=== PATIENT | female | born 1980 | race Caucasian/White ===

== ENCOUNTER 2017-03-01 16:11 | Observation (INO) | payer MEDICAID ==
[~2017-03-01] VITALS: Ht 152.4 cm; Wt 40.4 kg
[~2017-03-01 16:11] MED LIST: ACHYD1T PO; ALPR0.254 PO; DCS100C PO; DICL50TA6 PO; Diclofenac PO; ESCI10TA55 PO; ESCT10T; IBP800T PO; LURA40TA3 PO; METR500T; NITR100C3 PO; ONDA4TAB11 PO; PREN1TAB49
--- NOTE | 2017-03-01 16:26 | ED Fever ---
History of Present Illness General Stated Complaint: FEVER Source: patient Exam Limitations: no limitations History of Present Illness Time seen by provider: 16:25 Initial Comments To ER with reports of a fever. It was at 102 earlier today. She finished Zithromax prednisone and an albuterol inhaler today which she was prescribed for cough, fevers and chills. She denies improvement and reports a persistent productive cough. Timing/Duration: constant Fever Quality: greater than 100.5 F Fever Therapy [employer]: prescription medications Associated Symptoms: cough Allergies and Home Medications Allergies Coded Allergies: No Known Drug Allergies (Verified , 05/22/09) Home Medications Alprazolam 0.25 Mg Tablet, 0.25 MG PO TID PRN for ANXIETY, (Reported) Diclofenac Sodium 50 Mg Tablet.dr, 50 MG PO BID, (Reported) Escitalopram Oxalate 10 Mg Tablet, 10 MG PO HS, (Reported) Lurasidone HCl 40 Mg Tablet, 40 MG PO HS, (Reported) Ondansetron 4 Mg Tab.rapdis, 4 MG PO Q8H PRN for NAUSEA, #30 Ref 0 Prescribed by: DI HUDDLESTON on 08/12/162040 Constitutional: see HPI, chills, fever EENTM: see HPI Respiratory: see HPI, cough, short of breath Cardiovascular: no symptoms reported Genitourinary: no symptoms reported Musculoskeletal: no symptoms reported Skin: no symptoms reported Psychiatric/Neurological: No Symptoms Reported Past Dyndohu-Ztsnou-Ejvgih Hx Patient Social History Type Used: Cigarettes Recent Foreign Travel: No Contact w/Someone Who Travel: No Recent Hopitalizations: No Immunizations Up To Date Tetanus Booster (TDap): More than 5yrs Date of Influenza Vaccine: May 23, 2016 Seasonal Allergies Seasonal Allergies: No Surgeries HX Surgeries: Yes (right shoulder surgery) Surgeries: Adenoidectomy, Tonsillectomy Respiratory Hx Respiratory Disorders: No Respiratory Disorders: Pneumonia Cardiovascular Hx Cardiac Disorders: No Neurological Hx Neurological Disorders: No Neurological Disorders: Concussion Reproductive System Hx Reproductive Disorders: No Sexually Transmitted Disease: Yes (HPV) HIV/AIDS: No Female Reproductive Disorders: Polycystic Ovarian Dis Genitourinary Hx Genitourinary Disorders: No Genitourinary Disorders: Bladder Infection Gastrointestinal Hx Gastrointestinal Disorders: No Musculoskeletal Hx Musculoskeletal Disorders: No Musculoskeletal Disorders: Back Injury, Scoliosis Endocrine Hx Endocrine Disorders: No HEENT HX ENT Disorders: No Loss of Vision: Denies Hearing Impairment: Denies Cancer Hx Cancer: No Psychosocial Hx Psychiatric Problems: Yes Behavioral Health Disorders: Bipolar, Depression Integumentary HX Skin/Integumentary Disorder: No Blood Transfusions Hx Blood Disorders: No Adverse Reaction to a Blood Tr: No Family Medical History Family Medial History: Alcoholism Grandparents (Paternal Grandfather) Cardiovascular disease Grandparents (Maternal Grandmother) Cataracts Grandparents (Maternal Grandparents) Completed stroke Grandparents (Maternal Grandfather) Congenital disease 19 FATHER (Factor 5 [place]) G8 SISTER (Factor 5 [place]) Dementia Grandparents (Maternal Grandmother) Diabetes mellitus 19 FATHER Grandparents (Maternal Grandmother) Glaucoma Grandparents (Maternal Grandparents) Hypercholesterolemia 19 FATHER Hypertension 19 FATHER G8 SISTER Grandparents (Maternal Grandfather) Kidney disease 19 MOTHER (Kidney removed due to disease) Myocardial infarction 19 FATHER G8 SISTER Grandparents (Maternal Grandfather Paternal Grandmother) Parkinson's disease Grandparents (Maternal Grandfather) Seizure disorder G8 SISTER No Family History of: AIDS Abdominal aortic aneurysm Sylvester's disease Alzheimer's disease Aphasia Arthritis Asthma Cancer of mouth Colon cancer Congenital heart disease Coronary thrombosis Cystic fibrosis Deafness or hearing loss Drug abuse Dysphasia Fibrocystic disease of breast Gastroenteritis Headache disorder Infertility Neoplasm Not obtainable due to adoption Osteoporosis Prostate cancer Psychosocial problem Respiratory disorder Severe allergy Thyroid disease Tuberculosis Visual disorder Physical Exam Vital Signs Vital Sign - Last 12Hours 03/01/17 16:33 Temp 103.0 Pulse 99 Resp 18 B/P (MAP) 115/73 Pulse Ox 96 O2 Delivery Room Air Capillary Refill : General Appearance: WD/WN, no apparent distress Eyes: Bilateral Eye EOMI, Bilateral Eye Normal Inspection, Bilateral Eye PERRL HEENT: PERRL/EOMI, normal ENT inspection Neck: non-tender, full range of motion Respiratory: no respiratory distress, no accessory muscle use, wheezing (faint) Cardiovascular: regular rate, rhythm, no murmur Gastrointestinal: normal bowel sounds, non tender, soft Extremities: normal range of motion, non-tender Neurologic/Psychiatric: alert, normal mood/affect, oriented x 3 Skin: normal color, warm/dry Focused Exam Lactic Acid Level Laboratory Tests Test 03/01/17 17:01 Lactic Acid Level 1.27 MMOL/L (0.50-2.00) Progress/Results/Core Measures Results/Orders Lab Results Laboratory Tests Test 03/01/17 16:54 03/01/17 17:01 03/01/17 18:40 Range/Units White Blood Count 10.9 4.3-11.0 10^3/uL Red Blood Count 3.85 L 4.35-5.85 10^6/uL Hemoglobin 12.3 11.5-16.0 G/DL Hematocrit 36 35-52 % Mean Corpuscular Volume 94 80-99 FL Mean Corpuscular Hemoglobin 32 25-34 PG Mean Corpuscular Hemoglobin Concent 34 32-36 G/DL Red Cell Distribution Width 12.2 10.0-14.5 % Platelet Count 226 130-400 10^3/uL Mean Platelet Volume 11.0 H 7.4-10.4 FL Neutrophils (%) (Auto) 72 42-75 % Lymphocytes (%) (Auto) 23 12-44 % Monocytes (%) (Auto) 5 0-12 % Eosinophils (%) (Auto) 0 0-10 % Basophils (%) (Auto) 0 0-10 % Neutrophils # (Auto) 7.8 1.8-7.8 X 10^3 Lymphocytes # (Auto) 2.5 1.0-4.0 X 10^3 Monocytes # (Auto) 0.6 0.0-1.0 X 10^3 Eosinophils # (Auto) 0.0 0.0-0.3 10^3/uL Basophils # (Auto) 0.0 0.0-0.1 10^3/uL Serum Test, Qualitative NEGATIVE NEGATIVE Monoscreen NEGATIVE NEGATIVE Sodium Level 136 135-145 MMOL/L Potassium Level 2.4 *L 3.6-5.0 MMOL/L Chloride Level 96 L 98-107 MMOL/L Carbon Dioxide Level 27 21-32 MMOL/L Anion Gap 13 5-14 MMOL/L Blood Urea Nitrogen 7 7-18 MG/DL Creatinine 0.69 0.60-1.30 MG/DL Estimat Glomerular Filtration Rate > 60 BUN/Creatinine Ratio 10 Glucose Level 95 70-105 MG/DL Lactic Acid Level 1.27 0.50-2.00 MMOL/L Calcium Level 9.0 8.5-10.1 MG/DL Total Bilirubin 0.5 0.1-1.0 MG/DL Aspartate Amino Transf (AST/SGOT) 79 H 5-34 U/L Alanine Aminotransferase (ALT/SGPT) 165 H 0-55 U/L Alkaline Phosphatase 121 40-136 U/L Total Protein 7.1 6.4-8.2 GM/DL Albumin 4.2 3.2-4.5 GM/DL Urine Color YELLOW Urine Clarity CLEAR Urine pH 7 5-9 Urine Specific [place] 1.005 L 1.016-1.022 Urine Protein NEGATIVE NEGATIVE Urine Glucose (UA) NEGATIVE NEGATIVE Urine Ketones NEGATIVE NEGATIVE Urine Nitrite NEGATIVE NEGATIVE Urine Bilirubin NEGATIVE NEGATIVE Urine Urobilinogen NORMAL NORMAL MG/DL Urine Leukocyte Esterase NEGATIVE NEGATIVE Urine RBC (Auto) NEGATIVE NEGATIVE Urine RBC NONE /HPF Urine WBC NONE /HPF Urine Squamous Epithelial Cells RARE /HPF Urine Crystals NONE /LPF Urine Bacteria NONE /HPF Urine Casts NONE /LPF Urine Mucus NEGATIVE /LPF Urine Culture Indicated NO Urine Opiates Screen NEGATIVE NEGATIVE Urine Oxycodone Screen POSITIVE H NEGATIVE Urine Methadone Screen NEGATIVE NEGATIVE Urine Propoxyphene Screen NEGATIVE NEGATIVE Urine Barbiturates Screen NEGATIVE NEGATIVE Ur Tricyclic Antidepressants Screen NEGATIVE NEGATIVE Urine Phencyclidine Screen NEGATIVE NEGATIVE Urine Amphetamines Screen NEGATIVE NEGATIVE Urine Methamphetamines Screen NEGATIVE NEGATIVE Urine Benzodiazepines Screen NEGATIVE NEGATIVE Urine Cocaine Screen NEGATIVE NEGATIVE Urine Cannabinoids Screen POSITIVE H NEGATIVE My Orders Orders - EVELYN BURNETT APRN Cbc With Automated Diff (03/01/17 16:23) Comprehensive Metabolic Panel (03/01/17 16:23) Blood Culture (03/01/17 16:23) Chest Pa/Lat (2 View) (03/01/17 16:23) Hcg,Qualitative Serum (03/01/17 16:23) Lactic Acid Analyzer (03/01/17 16:23) Saline Lock/Iv-Start (03/01/17 16:23) Ns Iv 1000 Ml (Sodium Chloride 0.9%) (03/01/17 16:30) Acetaminophen Tablet (Tylenol Tablet) (03/01/17 16:30) Ibuprofen Tablet (Motrin Tablet) (03/01/17 16:30) Ua Culture If Indicated (03/01/17 18:06) Drug Screen Stat (Urine) (03/01/17 18:21) Potassium Chloride (Tablet) (Klor Con Ta (03/01/17 18:30) Monotest (03/01/17 18:22) Ekg Tracing (03/01/17 19:00) Medications Given in ED Current Medications Medications Dose Ordered Sig/Marck Route Start Time Stop Time Status Last Admin Dose Admin Acetaminophen 1,000 mg ONCE ONCE PO 03/01/17 16:30 03/01/17 16:31 DC 03/01/17 16:46 1,000 MG Ibuprofen 600 mg ONCE ONCE PO 03/01/17 16:30 03/01/17 16:31 DC 03/01/17 16:46 600 MG Vital Signs/I&O Vital Sign - Last 12Hours 03/01/17 16:33 Temp 103.0 Pulse 99 Resp 18 B/P (MAP) 115/73 Pulse Ox 96 O2 Delivery Room Air Diagnostic Imaging Diagonstic Imaging: Xray Plain Films/CT/US/NM/MRI: chest Comments NAME: RICARDO JUAREZ MED REC#: [id number] PT STATUS: REG ER : 1980 PHYSICIAN: EVELYN BURNETT APRN ADMIT DATE: 03/01/17/ER Signed Date of Exam:03/01/17 CHEST PA/LAT (2 VIEW) INDICATION: A 37-year-old female presents with shortness of breath, fever, and productive cough. COMPARISONS: None. FINDINGS: PA and lateral films of the chest show the cardiac contour to be normal. There are prominent central lung markings with peribronchial cuffing. Background parenchymal changes with an interstitial and alveolar pattern seen. No focal confluent consolidations present. There is no effusion or pneumothorax. Evidence of mild air trapping is also seen. Soft tissues and bony thorax are normal. IMPRESSION: Prominent central reactive airway changes with some peribronchial cuffing suggests reactive airway changes such as bronchitis. There are superimposed diffuse bilateral interstitial and alveolar opacities, but no confluent consolidations. Dictated by: Dictated on workstation # [id number] Dict: 03/01/171804 Trans: 03/01/171809 [id number] Interpreted by: TABITHA ROGERS MD Electronically signed by: TABITHA ROGERS MD 03/01/171809 Departure Communication Progress Notes 1844-discussed the case with Dr. Huddleston. agrees to admit with ivf and tele Impression Impression: Primary Impression: Hypokalemia Additional Impression: Bronchitis Disposition: 01 HOME, SELF-CARE Condition: Stable Departure-Patient Inst. Decision time for Depature: 18:44 Referrals: NO,LOCAL PHYSICIAN (PCP/Family) Primary Care Physician Patient Instructions: Acute Bronchitis, Adult (DC) Add. Discharge Instructions: 1. Follow-up with Dr. Huddleston in regards to your elevated liver enzymes. A hepatitis panel may need to be ordered as these can present initially with fever 2. Return to ER for any concerns 3. Work/School Note: Work Release Form Date Seen in the Emergency Department: Mar 01, 2017 Return to Work: Mar 04, 2017 EVELYN BURNETT APRN Mar 01, 2017 16:26
[2017-03-01] MEDS ORDERED: IBUPROFEN 600 MG (MOTRIN) TAB PO ONE (16:30)
[2017-03-01] MEDS ORDERED: ACETAMINOPHEN 500 MG TAB (TYLENOL) PO ONE (16:30)
[2017-03-01] MEDS ORDERED: NS IV 1000 ML 1,000 ML IV SCH (16:30)
[2017-03-01 17:24] LABS: BASOPHILS % (AUTO) 0 % (0-10); EOSINOPHILS % (AUTO) 0 % (0-10); LYMPHOCYTES # (AUTO) 2.5 X 10^3 (1.0-4.0); LYMPHOCYTES % (AUTO) 23 % (12-44); MEAN CORPUSCULAR HEMOGLOBIN 32 PG (25-34); MEAN CORPUSCULAR HGB CONC 34 G/DL (32-36); MEAN CORPUSCULAR VOLUME 94 FL (80-99); MONOCYTES # (AUTO) 0.6 X 10^3 (0.0-1.0); MONOCYTES % (AUTO) 5 % (0-12); NEUTROPHILS # (AUTO) 7.8 X 10^3 (1.8-7.8); NEUTROPHILS % (AUTO) 72 % (42-75); PLATELET COUNT 226 10^3/uL (130-400); RED BLOOD COUNT 3.85 10^6/uL (4.35-5.85); RED CELL DISTRIBUTION WIDTH 12.2 % (10.0-14.5); WHITE BLOOD COUNT 10.9 10^3/uL (4.3-11.0)
[2017-03-01 17:27] LABS: ALANINE AMINOTRANSFERASE 165 U/L (0-55); ALBUMIN 4.2 GM/DL (3.2-4.5); ANION GAP 13 MMOL/L (5-14); ASPARTATE AMINO TRANSFERASE 79 U/L (5-34); BILIRUBIN,TOTAL 0.5 MG/DL (0.1-1.0); BLOOD UREA NITROGEN 7 MG/DL (7-18); BUN/CREATININE RATIO 10; CARBON DIOXIDE 27 MMOL/L (21-32); CHLORIDE 96 MMOL/L (98-107); CREATININE SERUM 0.69 MG/DL (0.60-1.30); GFR ESTIMATED > 60; GLUCOSE 95 MG/DL (70-105); SODIUM 136 MMOL/L (135-145); TOTAL PROTEIN 7.1 GM/DL (6.4-8.2)
[2017-03-01 17:29] LABS: POTASSIUM 2.4 MMOL/L (3.6-5.0)
--- NOTE | 2017-03-01 18:09 | Diagnostic Imaging Report ---
INDICATION: A 37-year-old female presents with shortness of breath, fever, and productive cough. COMPARISONS: None. FINDINGS: PA and lateral films of the chest show the cardiac contour to be normal. There are prominent central lung markings with peribronchial cuffing. Background parenchymal changes with an interstitial and alveolar pattern seen. No focal confluent consolidations present. There is no effusion or pneumothorax. Evidence of mild air trapping is also seen. Soft tissues and bony thorax are normal. IMPRESSION: Prominent central reactive airway changes with some peribronchial cuffing suggests reactive airway changes such as bronchitis. There are superimposed diffuse bilateral interstitial and alveolar opacities, but no confluent consolidations. Dictated by: Dictated on workstation # [id number]
[2017-03-01] MEDS ORDERED: KCL 10 MEQ TAB (MICRO K) PO ONE (18:30)
[2017-03-01 18:45] LABS: BILIRUBIN,URINE NEGATIVE (NEGATIVE); KETONES,URINE NEGATIVE (NEGATIVE); LEUKOCYTE ESTERASE ,URINE NEGATIVE (NEGATIVE); NITRITE,URINE NEGATIVE (NEGATIVE); PH,URINE 7 (5-9); PROTEIN,URINE NEGATIVE (NEGATIVE); UROBILINOGEN,URINE NORMAL (NORMAL)
[2017-03-01 18:55] LABS: SQUAMOUS EPITHELIAL CELL,UR RARE /HPF
[2017-03-01] MEDS ORDERED: NICOTINE 21 MG (NICODERM) PATCH TD ONE (19:45)
[2017-03-01 20:30] VITALS: BP 102/61
[2017-03-01] MEDS ORDERED: NS IV 1000 ML 1,000 ML ONE (20:54)
[2017-03-01] MEDS ORDERED: POTASSIUM CL 10MEQ/50ML IVPB 200 ML IV ONE (20:54)
[2017-03-01] MEDS: NS IV 1000 ML 1,000 ML IV SCH (21:19)
[2017-03-01] MEDS: POTASSIUM CL 10 MEQ/50 ML IVPB (PRE-MIX) IV SCH ×2 (21:19→22:45)
[2017-03-01] MEDS ORDERED: CATHETER FLUSH 10 ML SYR IV PRN (22:00)
[2017-03-01] MEDS: CATHETER FLUSH 10 ML SYR IV SCH (22:45)
[2017-03-02 00:17] VITALS: BP 89/56
[2017-03-02] MEDS: POTASSIUM CL 10 MEQ/50 ML IVPB (PRE-MIX) IV SCH ×2 (00:21→01:50)
[2017-03-02 03:28] VITALS: BP 107/72
[2017-03-02 05:22] LABS: ANION GAP 8 MMOL/L (5-14); BLOOD UREA NITROGEN 6 MG/DL (7-18); BUN/CREATININE RATIO 11; CALCIUM 9.1 MG/DL (8.5-10.1); CARBON DIOXIDE 24 MMOL/L (21-32); CHLORIDE 108 MMOL/L (98-107); CREATININE SERUM 0.55 MG/DL (0.60-1.30); GFR ESTIMATED > 60; GLUCOSE 144 MG/DL (70-105); POTASSIUM 4.6 MMOL/L (3.6-5.0); SODIUM 140 MMOL/L (135-145)
[2017-03-02] MEDS: CATHETER FLUSH 10 ML SYR IV SCH (06:02)
[2017-03-02] MEDS: NS IV 1000 ML 1,000 ML IV SCH (06:54)
[2017-03-02 08:00] VITALS: BP 137/69
--- NOTE | 2017-03-02 08:56 | History & Physical ---
History of Present Illness History of Present Illness Reason for visit/HPI 37 yo F admitted for 1 week duration of upper respiratory tract infection that has not improved- Patient was found to have very low potassium while in the ER and a fever of 103F. She was hydrated but still did not look okay to discharge to home and still had a fever of 101F with antipyretics. Decision was made to monitor overnight with tele and fluid hydration-- as well as replace her potassium. Patient presented to the ER for persistent cough, fever and not feeling well. She has continued to work at [employer]- and smoke cigarettes which she reports she has slowed down her smoking. No overnight events. Afebrile overnight. Patient this AM though was getting ready to head downstairs to "walk" when I walked into her hospital room. I dismissed pt's mother to talk with Shonda by herself. I subsequently explained I would not tolerate her dishonesty and omission of medications she takes as her UDS has been positive for cannabinoids and oxycodone the past 2 admissions. Date of Admission Mar 01, 2017 at 7:09 pm Date Seen by Provider: Mar 02, 2017 Time Seen by Provider: 08:20 I consulted on this patient on 03/02/17 08:51 Attending Physician Lg Huddleston MD Admitting Physician No,Local Physician Consult Allergies and Home Medications Allergies Coded Allergies: No Known Drug Allergies (Verified , 05/22/09) Home Medications Acetaminophen 500 Mg Tablet, 1,000 MG PO Q6H PRN for PAIN-MILD, (Reported) TAKES 2 (500 MG) TABLETS Atomoxetine HCl 25 Mg Capsule, 25 MG PO DAILY, (Reported) FILLED 02/26/07 #30 / HAS NOT PICKED UP YET Escitalopram Oxalate 10 Mg Tablet, 10 MG PO HS, (Reported) Hydroxyzine Pamoate 25 Mg Capsule, 25 MG PO DAILY PRN for ANXIETY, (Reported) FILLED 02/26/17 #30 / HAS NOT PICKED UP YET Lurasidone HCl 60 Mg Tablet, 60 MG PO HS, (Reported) Ped Multivit #43/Iron Fumarate 18 Mg Tab.chew, 36 MG PO DAILY, (Reported) TAKES 2 (18 MG) TABLETS Past Gvenlaf-Hidapb-Rndnmx Hx Patient Social History Alcohol Use: Occasionally Uses Recreational Drug Use: No (MARIJUANA, SPEED COCAINE, ACID, MUSHROOMS,) Smoking Status: Current Everyday Smoker Type Used: Cigarettes Physical Abuse Screen: No Sexual Abuse: No Recent Foreign Travel: No Contact w/other who traveled: No Recent Hopitalizations: No Recent Infectious Disease Expo: No Immunizations Up To Date Tetanus Booster (TDap): More than 5yrs Date of Influenza Vaccine: May 23, 2016 Seasonal Allergies Seasonal Allergies: No Surgeries HX Surgeries: Yes (right shoulder surgery) Surgeries: Adenoidectomy, Tonsillectomy Respiratory Hx Respiratory Disorders: No Cardiovascular Hx Cardiovascular Disorders: No Neurological Hx Neurological Disorders: No Neurological Disorders: Concussion Reproductive System Hx Reproductive Disorders: No Sexually Transmitted Disease: Yes (HPV) HIV/AIDS: No Female Reproductive Disorders: Polycystic Ovarian Dis Genitourinary Hx Genitourinary Disorders: No Genitourinary Disorders: Bladder Infection Gastrointestinal Hx Gastrointestinal Disorders: No Musculoskeletal Hx Musculoskeletal Disorders: No Musculoskeletal Disorders: Back Injury, Scoliosis Endocrine Hx Endocrine Disorders: No HEENT HX ENT Disorders: No Loss of Vision: Denies Hearing Impairment: Denies Cancer Hx Cancer: No Psychosocial Hx Psychiatric Problems: Yes Behavioral Health Disorders: Bipolar, Depression Integumentary HX Skin/Integumentary Disorder: No Blood Transfusions Hx Blood Disorders: No Adverse Reaction to a Blood Tr: No Family Medical History Family Hx: Alcoholism Grandparents (Paternal Grandfather) Cardiovascular disease Grandparents (Maternal Grandmother) Cataracts Grandparents (Maternal Grandparents) Completed stroke Grandparents (Maternal Grandfather) Congenital disease 19 FATHER (Factor 5 [place]) G8 SISTER (Factor 5 [place]) Dementia Grandparents (Maternal Grandmother) Diabetes mellitus 19 FATHER Grandparents (Maternal Grandmother) Glaucoma Grandparents (Maternal Grandparents) Hypercholesterolemia 19 FATHER Hypertension 19 FATHER G8 SISTER Grandparents (Maternal Grandfather) Kidney disease 19 MOTHER (Kidney removed due to disease) Myocardial infarction 19 FATHER G8 SISTER Grandparents (Maternal Grandfather Paternal Grandmother) Parkinson's disease Grandparents (Maternal Grandfather) Seizure disorder G8 SISTER No Family History of: AIDS Abdominal aortic aneurysm [place]'s disease Alzheimer's disease Aphasia Arthritis Asthma Cancer of mouth Colon cancer Congenital heart disease Coronary thrombosis Cystic fibrosis Deafness or hearing loss Drug abuse Dysphasia Fibrocystic disease of breast Gastroenteritis Headache disorder Infertility Neoplasm Not obtainable due to adoption Osteoporosis Prostate cancer Psychosocial problem Respiratory disorder Severe allergy Thyroid disease Tuberculosis Visual disorder Review of Systems Review of Systems General: Chills (fever) HEENT: No Head Aches, No Visual Changes, No Eye Pain Pulmonary: Dyspnea, Cough Cardiovascular: No: Chest Pain, Orthopnea, Palpitations Gastrointestinal: No: Abdominal Pain, Nausea, Vomiting Genitourinary: No Dysuria, No Frequency Musculoskeletal: No: neck pain, shoulder pain Neurological: Weakness Physical Exam Vital Signs Vital Sign - Last 12Hours 03/01/17 16:33 Temp 103.0 Pulse 99 Resp 18 B/P (MAP) 115/73 Pulse Ox 96 O2 Delivery Room Air Temp 97F Vital Signs Date Time Temp Pulse Resp B/P (MAP) Pulse Ox O2 Delivery O2 Flow Rate FiO2 03/02/17 10:26 54 20 137/69 96 Room Air General Appearance: No Apparent Distress, Thin Eyes: Bilateral Eye Normal Inspection HEENT: PERRL/EOMI Neck: Non Tender, Supple Respiratory: Chest Non Tender, Lungs Clear, No Accessory Muscle Use, No Respiratory Distress, Wheezing (throughout - a little tight) Cardiovascular: Regular Rate, Rhythm, No Edema, No Murmur Gastrointestinal: Normal Bowel Sounds, Non Tender, Soft Rectal: Deferred Back: Normal Inspection, No CVA Tenderness Neurologic/Psychiatric: Alert, Oriented x3, No Motor/Sensory Deficits, Depressed Affect Skin: Normal Color, Warm/Dry Lymphatic: No Adenopathy Assessment/Plan Assessment/Plan Assessment/Plan 37 yo F Hypokalemia- resolved with K replacement- encourage balanced diet. upper respiratory infection- improved - no oxygen- recommend smoking cessation- continue albuterol inhaler. general malaise- improved- walk a few times/day- do not overexert self in the sun. polysubstance abuse- UDS +oxycodone- pt says they are hers from previous rx- she has been positive on both admission for oxycodone and cannabinoids. elevated liver enzymes- likely from her [place]. depression- continue with her mental health provider Dispo: pt has improved and is ready for discharge to home. I informed pt due to polysubstance abuse and not being truthful about it - she is no longer a patient of [facility]. I will continue to care for her over the next 30 days while she finds a new PCP. Pt in agreeance and understands- she reports she has already been looking for a new PCP. Problems: Admission Dx Hypokalemia upper respiratory infection/ bronchitis general malaise polysubstance abuse elevated liver enzymes depression Final Diagnosis Hypokalemia- resolved upper respiratory infection- improved general malaise- improved polysubstance abuse- still an issue elevated liver enzymes depression Clinical Quality Measures DVT/VTE Risk/Contraindication: Risk Factor Score Per Nursin RFS Level Per Nursing on Admit: 1=Low/No VTE PPX LG HUDDLESTON MD Mar 02, 2017 08:56
[2017-03-02] MEDS ORDERED: LURA60TA2 PO (09:06)
[2017-03-02] MEDS ORDERED: ACET-93 PO (09:13)
[2017-03-02] MEDS ORDERED: HYDR-3781 PO (09:13)
[2017-03-02] MEDS ORDERED: ATOM25CA5 PO (09:13)
[2017-03-02] MEDS ORDERED: PED18TAB2 PO (09:13)
--- NOTE | 2017-03-02 09:19 | Discharge Inst-Simple/Standard ---
Discharge Inst-Standard Discharge Medications New, Converted or Re-Newed RX: Other (no new prescriptions) Patient Instructions/Follow Up Plan of Care/Instructions/FU: rest stay hydrated encourage smoking cessation Activity as Tolerated: Yes Discharge Diet: Eat Small Frequent Meals Return to The Hospital For: worsening symptoms. Planned Outpatient Orders/Ref. Pneu Vac Indicated: Yes DI HUDDLESTON MD Mar 02, 2017 09:19
[2017-03-02 10:26] VITALS: BP 137/69
--- OUTSIDE RECORDS SUMMARY | 2017-03-02 18:09 | XMS REPORT ---
Author KAT Carter [facility] eClinicalWorks Address Unknown Phone Unavailable Care Team Providers Care Em Physician Name Role Phone KAT ANDERSON CP Unavailable Allergies, Adverse Reactions, Alerts Substance Reaction Event Type Wellbutrin hallucinations Drug Allergy Problems Problem Type Condition ICD-9 Code Onset Dates Condition Status Problem Right shoulder pain 719.41 Active Problem Generalized anxiety disorder 300.02 Active Problem Routine adult health maintenance V70.0 Active Assessment Right shoulder pain 719.41 Active Problem Major depressive disorder, recurrent episode, mild 296.31 Active Assessment Routine adult health maintenance V70.0 Active Medications Medication Code System Code Instructions Start Date End Date Status Dosage Diclofenac Sodium [facility] [address]-14 50 MG Orally Three times a day Apr 09, 2015 Jun 08, 2015 1 tablet Cymbalta [facility] [address]-54 60 MG Orally Once a day 1 capsule Multivitamins [facility] 67[address] Orally not defined Xanax [facility] [address]-24 0.25 MG Orally Three times a day 1 tablet Apri [facility] [address]-29 0.15-30 MG-MCG Orally Once a day March 06, 2015 1 tablet Procedures Procedure Coding System Code Date COMPLETE CBC W/AUTO DIFF WBC CPT-4 77874 Apr 09, 2015 COMPREHEN METABOLIC PANEL CPT-4 16020 Apr 09, 2015 X-RAY EXAM OF SHOULDER CPT-4 83822 Apr 09, 2015 Office Visit, Est Pt., Level 4 CPT-4 58641 Apr 09, 2015 ASSAY THYROID STIM HORMONE CPT-4 16204 Apr 09, 2015 VENIPUNCT, ROUTINE* CPT-4 61610 Apr 09, 2015 Vital Signs Date/Time: Apr 09, 2015 Temperature 98.4 F Weight 115.8 lbs Height 60 in BMI 22.61 Index Blood Pressure Diastolic 74 mmHg Blood Pressure Systolic 114 mmHg Cardiac Monitoring Heart Rate 78 bpm Results Name Result Date Reference Range Unit Abnormality Flag CMP ----Calcium, Serum 9.3 20150409 8.7-10.2 mg/dL ----Carbon Dioxide, Total 24 12631827 18-29 mmol/L ----ALT (SGPT) 12 35176085 0-32 IU/L ----Creatinine, Serum 0.65 24153616 0.57-1.00 mg/dL ----AST (SGOT) 14 69483632 0-40 IU/L ----eGFR If NonAfricn Am 115 73158462 >59 mL/min/1.73 ----Alkaline Phosphatase, S 65 31152824 39-117 IU/L ----eGFR If Africn Am 133 11020204 >59 mL/min/1.73 ----Bilirubin, Total <0.2 55939356 0.0-1.2 mg/dL ----BUN/Creatinine Ratio 12 [id number] 8-20 ----A/G Ratio 2.1 92773658 1.1-2.5 ----Sodium, Serum 143 18155331 134-144 mmol/L ----Globulin, Total 2.2 79575902 1.5-4.5 g/dL ----Potassium, Serum 4.5 69637643 3.5-5.2 mmol/L ----Glucose, Serum 85 27863757 65-99 mg/dL ----Chloride, Serum 100 47611002 97-108 mmol/L ----Albumin, Serum 4.6 06856685 3.5-5.5 g/dL ----BUN 8 26503522 6-20 mg/dL ----Protein, Total, Serum 6.8 74737595 6.0-8.5 g/dL TSH ROUTINE VENIPUNCTURE CBC ----MCHC 33.1 59355849 31.5-35.7 g/dL ----MCH 30.9 21045606 26.6-33.0 pg ----Platelets 291 [id number] 150-379 x10E3/uL ----RDW 13.8 59214906 12.3-15.4 % ----Immature Granulocytes 0 52345770 % ----Immature Grans (Abs) 0.0 34557257 0.0-0.1 x10E3/uL ----Lymphs 36 29281428 % ----Monocytes 6 52023130 % ----Neutrophils 56 78993030 % ----Neutrophils (Absolute) 4.7 [id number] 1.4-7.0 x10E3/uL ----Hematocrit 38.4 28193260 34.0-46.6 % ----Lymphs (Absolute) 2.9 15425382 0.7-3.1 x10E3/uL ----MCV 93 69376652 79-97 fL ----RBC 4.11 51439840 3.77-5.28 x10E6/uL ----Eos 2 04692641 % ----Basos 0 87950420 % ----Hemoglobin 12.7 52754897 11.1-15.9 g/dL ----Baso (Absolute) 0.0 20150409 0.0-0.2 x10E3/uL ----WBC 8.3 32187361 3.4-10.8 x10E3/uL ----Monocytes(Absolute) 0.5 94646988 0.1-0.9 x10E3/uL ----Eos (Absolute) 0.2 [id number] 0.0-0.4 x10E3/uL Xray : Shoulder, Right 2 view (IN HOUSE) Summary Purpose eClinicalWorks Submission
--- OUTSIDE RECORDS SUMMARY | 2017-03-02 18:09 | XMS REPORT ---
Author Author MIO FAY eClinicalWorks Address Unknown Phone Unavailable Care Team Providers Care Air Value Tester Name Role Phone MIO FAY CP Unavailable Allergies No Known Allergies Problems Problem Type Condition Code Onset Dates Condition Status Problem Routine adult health maintenance V70.0 Active Problem Right shoulder pain 719.41 Active Problem Vaginal pb B37.3 Active Assessment Generalized anxiety disorder F41.1 Active Assessment Major depressive disorder, recurrent episode, mild F33.0 Active Problem Generalized anxiety disorder F41.1 Active Problem Major depressive disorder, recurrent episode, mild F33.0 Active Medications No Known Medications Procedures Procedure Coding System Code Date Psychotherapy, patient &/family, 45 minutes, established patient CPT-4 84687 Mar 24, 2016 Results No Known Results Summary Purpose eClinicalWorks Submission
--- OUTSIDE RECORDS SUMMARY | 2017-03-02 18:09 | XMS REPORT ---
Author Author MIO FAY eClinical[employer] Address Unknown Phone Unavailable Care Team Providers Care International Nurse Name Role Phone MIO FAY Unavailable Allergies No Known Allergies Problems Problem Type Condition Code Onset Dates Condition Status Problem Routine adult health maintenance V70.0 Active Problem Right shoulder pain 719.41 Active Problem Vaginal pb B37.3 Active Problem Generalized anxiety disorder F41.1 Active Problem Major depressive disorder, recurrent episode, mild F33.0 Active Medications No Known Medications Results No Known Results Summary Purpose eClinicalWorks Submission
--- OUTSIDE RECORDS SUMMARY | 2017-03-02 18:09 | XMS REPORT ---
Author KAT Carter Organization eClinicalWorks Address Unknown Phone Unavailable Care Team Providers Care Lab Scientist Name Role Phone KAT ANDERSON CP Unavailable Allergies No Known Allergies Problems Problem Type Condition ICD-9 Code Onset Dates Condition Status Problem Right shoulder pain 719.41 Active Problem Generalized anxiety disorder 300.02 Active Problem Routine adult health maintenance V70.0 Active Problem Major depressive disorder, recurrent episode, mild 296.31 Active Medications No Known Medications Results No Known Results Summary Purpose eClinicalWorks Submission
--- OUTSIDE RECORDS SUMMARY | 2017-03-02 18:10 | XMS REPORT ---
Author Author LAYNE GUIDO Organization [employer] Address Unknown Phone Unavailable Care Team Providers Care Professional Model Name Role Phone LAYNE GUIDO Unavailable Allergies No Known Allergies Problems Problem Type Condition Code Onset Dates Condition Status Problem Routine adult health maintenance V70.0 Active Problem Right shoulder pain 719.41 Active Problem Vaginal pb B37.3 Active Problem Generalized anxiety disorder 300.02 Active Problem Major depressive disorder, recurrent episode, mild 296.31 Active Medications No Known Medications Results No Known Results Summary Purpose eClinicalWorks Submission
--- OUTSIDE RECORDS SUMMARY | 2017-03-02 18:10 | XMS REPORT ---
Author FRANCHESKA Leon [facility] eClinicalWorks Address Unknown Phone Unavailable Care Team Providers Care Geothermal System Installer Name Role Phone FRANCHESKA SILVA CP Unavailable Allergies No Known Allergies Problems Problem Type Condition Code Onset Dates Condition Status Problem Routine adult health maintenance V70.0 Active Problem Right shoulder pain 719.41 Active Problem Vaginal pb B37.3 Active Assessment Encounter for immunization Z23 Active Problem Generalized anxiety disorder F41.1 Active Problem Major depressive disorder, recurrent episode, mild F33.0 Active Medications No Known Medications Procedures Procedure Coding System Code Date SINGLE IMMUNIZATION ADMIN CPT-4 95724 Jul 14, 2016 FLUARIX QUAD P-FREE 3 AND UP .50 2015 CPT-4 81661 Jul 14, 2016 Results No Known Results Immunizations Vaccine Administration Date FLUARIX QUAD P-FREE 3 AND UP .50 2015Jul 14, 2016 Summary Purpose eClinicalWorks Submission
--- OUTSIDE RECORDS SUMMARY | 2017-03-02 18:10 | XMS REPORT ---
Author Author CARLO FAY [facility] eClinicalWorks Address Unknown Phone Unavailable Care Team Providers Care Personal Development Mentor Name Role Phone CARLO FAY CP Unavailable Allergies No Known Allergies Problems Problem Type Condition Code Onset Dates Condition Status Problem Routine adult health maintenance V70.0 Active Problem Right shoulder pain 719.41 Active Problem Vaginal pb B37.3 Active Assessment Other termite inspector (current) drug therapy Z79.899 Active Problem Generalized anxiety disorder F41.1 Active Problem Major depressive disorder, recurrent episode, mild F33.0 Active Medications No Known Medications Procedures Procedure Coding System Code Date VENIPUNCT, ROUTINE* CPT-4 22512 Jul 07, 2016 [facility] C[facility]-4 NOBLL Jul 07, 2016 Results Name Result Date Reference Range Unit Abnormality Flag CMP ----Calcium, Serum 9.3 71508030 8.7-10.2 mg/dL ----Carbon Dioxide, Total 24 20160707 18-29 mmol/L ----ALT (SGPT) 11 [id number] 0-32 IU/L ----Creatinine, Serum 0.60 09996492 0.57-1.00 mg/dL ----AST (SGOT) 14 [id number] 0-40 IU/L ----eGFR If NonAfricn Am 118 [id number] >59 mL/min/1.73 ----Alkaline Phosphatase, S 56 34303982 39-117 IU/L ----eGFR If Africn Am 136 [id number] >59 mL/min/1.73 ----Bilirubin, Total 0.5 99530232 0.0-1.2 mg/dL ----BUN/Creatinine Ratio 13 [id number] 8-20 ----A/G Ratio 2.6 [id number] 1.1-2.5 H ----Sodium, Serum 138 96731490 136-144 mmol/L ----Globulin, Total 2.0 24321685 1.5-4.5 g/dL ----Potassium, Serum 3.7 23501158 3.5-5.2 mmol/L ----Glucose, Serum 88 09273718 65-99 mg/dL ----Chloride, Serum 99 16136480 97-106 mmol/L ----Albumin, Serum 5.1 17309111 3.5-5.5 g/dL ----BUN 8 99681089 6-20 mg/dL ----Protein, Total, Serum 7.1 84529141 6.0-8.5 g/dL ROUTINE VENIPUNCTURE LIPID PANEL ----VLDL Cholesterol Tahir 15 91467589 5-40 mg/dL ----LDL Cholesterol Calc 102 87808362 0-99 mg/dL H ----Triglycerides 77 40253031 0-149 mg/dL ----HDL Cholesterol 43 56665978 >39 mg/dL ----Cholesterol, Total 160 75625267 100-199 mg/dL Summary Purpose eClinicalWorks Submission
--- OUTSIDE RECORDS SUMMARY | 2017-03-02 18:10 | XMS REPORT | Continuity of Care Document ---
Author Author [facility] Address Unknown Phone Unavailable Allergies Active Description Code Type Severity Reaction Onset Reported/Identified Relationship to Patient Clinical Status Yes No Known Drug Allergies [id number] Drug Allergy Unknown N/ A 05/22/2009 Medications Problems Date Dx Coded Attending Type Code Diagnosis Diagnosed By 12/24/2011 Ot 724.5 BACKACHE NOS 12/24/2011 Ot V57.1 PHYSICAL THERAPY NEC 03/27/2012 Ot 631.8 OTHER ABNORMAL PRODUCTS OF CONCEPTION 04/01/2012 GURMEET LARKIN PSYD 296.31 MO DEPRESSIVE RECURRENT MILD 04/01/2012 GURMEET LARKIN PSYD 300.02 AN GEN ANXIETY 04/01/2012 296.31 MO DEPRESSIVE RECURRENT MILD 04/01/2012 300.02 AN GEN ANXIETY 04/01/2012 GURMEET LARKIN PSYD 296.31 MO DEPRESSIVE RECURRENT MILD 04/01/2012 GURMEET LARKIN PSYD 300.02 AN GEN ANXIETY 05/28/2014 BORA CODY MD Ot 850.9 CONCUSSION NOS 05/28/2014 BORA CODY MD Ot 959.01 HEAD INJURY, NOS 05/28/2014 BORA CODY MD Ot E000.8 OTHER EXTERNAL CAUSE STATUS 05/28/2014 BORA CODY MD Ot E884.2 FALL FROM CHAIR 05/28/2014 BORA CODY MD Ot V22.2 PREG STATE, INCIDENTAL 08/18/2014 CHEYENNE VILLANUEVA MD Ot 665.41 HIGH VAGINAL LACER-DELIV 08/18/2014 CHEYENNE VILLANUEVA MD Ot V03.82 PROPHYLACTIC VACC AGAINST STREPTOCOCCUS 08/18/2014 CHEYENNE VILLANUEVA MD Ot V06.1 [id number], COMBINED [ 08/18/2014 CHEYENNE VILLANUEVA MD Ot V27.0 DELIVER-SINGLE LIVEBORN 10/13/2015 Ot 719.43 10/13/2015 EDYTA FOUNTAIN MD Ot 625.9 10/13/2015 EDYTA FOUNTAIN MD Ot V15.88 02/19/2016 Ot 719.43 JOINT PAIN-FOREARM 02/19/2016 EDYTA FOUNTAIN MD Ot 625.9 FEM GENITAL SYMPTOMS NOS 02/19/2016 EDYTA FOUNTAIN MD Ot V15.88 HISTORY OF FALL 08/12/2016 Ot 719.43 JOINT PAIN-FOREARM 08/12/2016 JULIO C MENDOZA MD A Ot E87.6 HYPOKALEMIA 08/12/2016 JULIO C MENDOZA MD A Ot F17.210 NICOTINE DEPENDENCE, CIGARETTES, UNCOMPL 08/12/2016 JULIO C MENDOZA MD A Ot K52.9 NONINFECTIVE GASTROENTERITIS AND COLITIS 08/12/2016 JULIO C MENDOZA MD A Ot R11.2 NAUSEA WITH VOMITING, UNSPECIFIED 08/12/2016 Ot 719.43 JOINT PAIN-FOREARM 08/12/2016 DI HUDDLESTON MD C Ot F17.210 NICOTINE DEPENDENCE, CIGARETTES, UNCOMPL 08/12/2016 DI HUDDLESTON MD C Ot R11.2 NAUSEA WITH VOMITING, UNSPECIFIED 08/12/2016 DI HUDDLESTON MD C Ot R19.7 DIARRHEA, UNSPECIFIED 08/13/2016 JULIO C MENDOZA MD A Ot E87.6 HYPOKALEMIA 08/13/2016 JULIO C MENDOZA MD A Ot F17.210 NICOTINE DEPENDENCE, CIGARETTES, UNCOMPL 08/13/2016 JULIO C MENDOZA MD A Ot K52.9 NONINFECTIVE GASTROENTERITIS AND COLITIS 08/13/2016 LETITIA MENDOZA MDNT A Ot R11.2 NAUSEA WITH VOMITING, UNSPECIFIED 08/13/2016 LETITIA MENDOZA MDNT A Ot E87.6 HYPOKALEMIA 08/13/2016 LETITIA MENDOZA MDNT A Ot F17.210 NICOTINE DEPENDENCE, CIGARETTES, UNCOMPL 08/13/2016 JULIO C MENDOZA MD A Ot K52.9 NONINFECTIVE GASTROENTERITIS AND COLITIS 08/13/2016 JULIO C MENDOZA MD A Ot R11.2 NAUSEA WITH VOMITING, UNSPECIFIED Procedures Code Description [place] [address] INDIV PSYTX 45/50 MIN 06/22/2012 58018 INDIV PSYTX 45/50 MIN 07/07/2012 23783 INDIV PSYTX 45/50 MIN 08/04/2012 30735 PSYTX PT&/FAMILY 45 MINUTES 09/01/2012 75.69 REPAIR OB LACERATION NEC 08/16/2014 Results Test Result Range Complete blood count (CBC) with automated white blood cell (WBC) differential - 08/12/16 02:15 Blood leukocytes automated count (number/volume) 9.7 10*3/ uL 4.3-11.0 Blood erythrocytes automated count (number/volume) 4.45 10*6 /uL 4.35-5.85 Venous blood hemoglobin measurement (mass/volume) 14.1 g/dL 11.5-16.0 Blood hematocrit (volume fraction) 41 % 35-52 Automated erythrocyte mean corpuscular volume 92 [foz_us] 80-99 Automated erythrocyte mean corpuscular hemoglobin (mass per erythrocyte) 32 pg 25-34 Automated erythrocyte mean corpuscular hemoglobin concentration measurement ( mass/volume) 35 g/dL 32-36 Automated erythrocyte distribution width ratio 12.1 % 10.0-14.5 Automated blood platelet count (count/volume) 228 10*3/uL 130-400 Automated blood platelet mean volume measurement 11.0 [foz_ us] 7.4-10.4 Automated blood neutrophils/100 leukocytes 82 % 42-75 Automated blood lymphocytes/100 leukocytes 9 % 12-44 Blood monocytes/100 leukocytes 8 % 0-12 Automated blood eosinophils/100 leukocytes 1 % 0-10 Automated blood basophils/100 leukocytes 0 % 0-10 Blood neutrophils automated count (number/volume) 7.9 10*3 1.8-7.8 Blood lymphocytes automated count (number/volume) 0.9 10*3 1.0-4.0 Blood monocytes automated count (number/volume) 0.7 10*3 0.0-1.0 Automated eosinophil count 0.1 10*3/uL 0.0-0.3 Automated blood basophil count (count/volume) 0.0 10*3/uL 0.0-0.1 Comprehensive metabolic panel - 08/12/16 02:15 Serum or plasma sodium measurement (moles/volume) 139 mmol/ L 135-145 Serum or plasma potassium measurement (moles/volume) 3.1 mmol/L 3.6-5.0 Serum or plasma chloride measurement (moles/volume) 105 mmol /L 98-107 Carbon dioxide 22 mmol/L 21-32 Serum or plasma anion gap determination (moles/volume) 12 mmol/L 5-14 Serum or plasma urea nitrogen measurement (mass/volume) 15 mg/dL 7-18 Serum or plasma creatinine measurement (mass/volume) 0.71 mg /dL 0.60-1.30 Serum or plasma urea nitrogen/creatinine mass ratio 21 NRG Serum or plasma creatinine measurement with calculation of estimated glomerular filtration rate > NRG Serum or plasma glucose measurement (mass/volume) 165 mg/dL 70-105 Serum or plasma calcium measurement (mass/volume) 8.9 mg/dL 8.5-10.1 Serum or plasma total bilirubin measurement (mass/volume) 1.1 mg/dL 0.1-1.0 Serum or plasma alkaline phosphatase measurement (enzymatic activity/volume) 56 U/L 40-136 Serum or plasma aspartate aminotransferase measurement (enzymatic activity/ volume) 18 U/L 5-34 Serum or plasma alanine aminotransferase measurement (enzymatic activity/volume ) 15 U/L 0-55 Serum or plasma protein measurement (mass/volume) 7.0 g/dL 6.4-8.2 Serum or plasma albumin measurement (mass/volume) 4.9 g/dL 3.2-4.5 Lipase - 08/12/16 02:15 Lipase 25 U/L 8-78 Serum or plasma choriogonadotropin ( test) detection - 08/12/16 02:15 Serum or plasma choriogonadotropin ( test) detection NEGATIVE NEGATIVE Complete urinalysis with reflex to culture - 08/12/16 07:40 Urine color determination YELLOW NRG Urine clarity determination CLEAR NRG Urine pH measurement by test strip 8 5- 9 Specific gravity of urine by test strip 1.010 1.016-1.022 Urine protein assay by test strip, semi-quantitative NEGATIVE NEGATIVE Urine glucose detection by automated test strip NEGATIVE NEGATIVE Erythrocytes detection in urine sediment by light microscopy NEGATIVE NEGATIVE Urine ketones detection by automated test strip 4+ NEGATIVE Urine nitrite detection by test strip NEGATIVE NEGATIVE Urine total bilirubin detection by test strip NEGATIVE NEGATIVE Urine urobilinogen measurement by automated test strip (mass/volume) NORMAL NORMAL Urine leukocyte esterase detection by dipstick NEGATIVE NEGATIVE Automated urine sediment erythrocyte count by microscopy (number/high power field) NONE NRG Automated urine sediment leukocyte count by microscopy (number/high power field ) NONE NRG Bacteria detection in urine sediment by light microscopy NEGATIVE NRG Squamous epithelial cells detection in urine sediment by light microscopy RARE NRG Crystals detection in urine sediment by light microscopy NONE NRG Casts detection in urine sediment by light microscopy NONE NRG Mucus detection in urine sediment by light microscopy NEGATIVE NRG Complete urinalysis with reflex to culture NO NRG Urine drug screening test - 08/12/16 07:40 Urine phencyclidine detection by screening method NEGATIVE NEGATIVE Urine benzodiazepines detection by screening method POSITIVE NEGATIVE Urine cocaine detection NEGATIVE NEGATIVE Urine amphetamines detection by screening method NEGATIVE NEGATIVE Urine methamphetamine detection by screening method NEGATIVE NEGATIVE Urine cannabinoids detection by screening method POSITIVE NEGATIVE Urine opiates detection by screening method NEGATIVE NEGATIVE Urine barbiturates detection NEGATIVE NEGATIVE Screening urine tricyclic antidepressants detection NEGATIVE NEGATIVE Urine methadone detection by screening method NEGATIVE NEGATIVE Urine oxycodone detection POSITIVE NEGATIVE Urine propoxyphene detection NEGATIVE NEGATIVE Encounters ACCT No. Visit Date/Time Discharge Status Pt. Type Provider Facility Loc./Unit Complaint [id number] 09/01/2012 10:02:00 09/01/2012 23: 59:59 CLS Outpatient GURMEET LARKIN PSYD [id number] 08/04/2012 13:58:00 08/04/2012 23: 59:59 CLS Outpatient [id number] 06/22/2012 11:02:00 06/22/2012 23: 59:59 CLS Outpatient GURMEET LARKIN PSYD
--- OUTSIDE RECORDS SUMMARY | 2017-03-02 18:10 | XMS REPORT ---
Author Author MIO FAY eClinicalWorks Address Unknown Phone Unavailable Care Team Providers Care Chief Drafter Name Role Phone MIO FAY Unavailable Allergies No Known Allergies Problems Problem Type Condition ICD-9 Code Onset Dates Condition Status Problem Right shoulder pain 719.41 Active Problem Generalized anxiety disorder 300.02 Active Problem Routine adult health maintenance V70.0 Active Assessment Major depressive disorder, recurrent episode, mild 296.31 Active Problem Major depressive disorder, recurrent episode, mild 296.31 Active Assessment Generalized anxiety disorder 300.02 Active Medications No Known Medications Procedures Procedure Coding System Code Date Psychotherapy, patient &/family, 45 minutes, established patient CPT-4 25893 Apr 23, 2015 Results No Known Results Summary Purpose eClinicalWorks Submission
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
--- OUTSIDE RECORDS SUMMARY | 2017-03-02 18:10 | XMS REPORT ---
Author LAYNE Cannon Organization eClinicalWorks Address Unknown Phone Unavailable Care Team Providers Care Keeper Helper Name Role Phone LAYNE GUIDO CP Unavailable Allergies, Adverse Reactions, Alerts Substance Reaction Event Type Wellbutrin hallucinations Drug Allergy Problems Problem Type Condition Code Onset Dates Condition Status Problem Routine adult health maintenance V70.0 Active Problem Right shoulder pain 719.41 Active Problem Vaginal pb B37.3 Active Assessment Vaginal pb B37.3 Active Problem Generalized anxiety disorder 300.02 Active Problem Major depressive disorder, recurrent episode, mild 296.31 Active Medications Medication Code System Code Instructions Start Date End Date Status Dosage Cymbalta [facility] [address]-03 60 MG Orally Once a day 1 capsule Multivitamins [facility] 55[address]01 Orally not defined Diflucan [facility] [address]-55 100 MG Orally Once a day Jun 17, 2015 Jun 27, 2015 1 tablet Xanax [facility] [address]-97 0.25 MG Orally Three times a day 1 tablet Diclofenac Sodium [facility] 04214563498 50 MG TAKE ONE TABLET BY MOUTH THREE TIMES DAILY Procedures Procedure Coding System Code Date TRICHOMONAS VAGIN, DIR PROBE CPT-4 43821 Jun 17, 2015 Office Visit, Est Pt., Level 3 CPT-4 64185 Jun 17, 2015 CULTURE, BACTERIA, OTHER CPT-4 91121 Jun 17, 2015 No Charge CPT-4 29400 Jun 17, 2015 URINALYSIS, AUTO, W/O SCOPE CPT-4 33146 Jun 17, 2015 Vital Signs Date/Time: Jun 17, 2015 Temperature 97.3 F Weight 110.8 lbs Height 60 in BMI 21.64 Index Blood Pressure Diastolic 60 mmHg Blood Pressure Systolic 100 mmHg Cardiac Monitoring Heart Rate 80 bpm Results Name Result Date Reference Range Unit Abnormality Flag TRICHOMONAS (IN HOUSE) Summary Purpose eClinicalWorks Submission
--- OUTSIDE RECORDS SUMMARY | 2017-03-02 18:10 | XMS REPORT ---
Author FRANCHESKA Leon [facility] eClinicalWorks Address Unknown Phone Unavailable Care Team Providers Care Multi Operation Forming Machine Setter Name Role Phone FRANCHESKA SILVA CP Unavailable Allergies No Known Allergies Problems Problem Type Condition Code Onset Dates Condition Status Problem Routine adult health maintenance V70.0 Active Problem Right shoulder pain 719.41 Active Problem Vaginal pb B37.3 Active Assessment Encounter for immunization Z23 Active Problem Generalized anxiety disorder 300.02 Active Problem Major depressive disorder, recurrent episode, mild 296.31 Active Medications No Known Medications Procedures Procedure Coding System Code Date SINGLE IMMUNIZATION ADMIN CPT-4 55678 Jul 08, 2015 FLUZONE QUAD (3 & UP)-SINGLE DOSE VIAL-SANOFI PASTEUR-2014 CPT-4 58275 Jul 08, 2015 Results No Known Results Immunizations Vaccine Administration Date FLUZONE QUAD (3 & UP)-SINGLE DOSE VIAL-SANOFI PASTEUR-2014Jul 08, 2015 Summary Purpose eClinicalWorks Submission
--- OUTSIDE RECORDS SUMMARY | 2017-03-02 18:10 | XMS REPORT ---
Author Author MIO FAY eClinicalWorks Address Unknown Phone Unavailable Care Team Providers Care Remote Recruiter Name Role Phone MIO FAY CP Unavailable [...] patient &/family, 45 minutes, established patient CPT-4 53967 March 03, 2016 Results No Known Results Summary Purpose eClinicalWorks Submission
--- OUTSIDE RECORDS SUMMARY | 2017-03-02 18:10 | XMS REPORT ---
Author Author CARLO FAY Organization eClinicalWorks Address Unknown Phone Unavailable Care Team Providers Care Press Leader Name Role Phone CARLO FAY CP Unavailable Allergies No Known Allergies Problems Problem Type Condition Code Onset Dates Condition Status Problem Routine adult health maintenance V70.0 Active Problem Right shoulder pain 719.41 Active Problem Vaginal pb B37.3 Active Problem Generalized anxiety disorder F41.1 Active Problem Major depressive disorder, recurrent episode, mild F33.0 Active Medications Medication Code System Code Instructions Start Date End Date Status Dosage Latuda [facility] [address]-10 40 mg Orally. Once a day 1 tablet with food Lexapro [facility] [address]-95 10 mg Orally Once a day 1 tablet Results No Known Results Summary Purpose eClinicalWorks Submission
--- OUTSIDE RECORDS SUMMARY | 2017-03-02 18:10 | XMS REPORT ---
Author CARLO Lemus Organization eClinicalWorks Address Unknown Phone Unavailable Care Team Providers Care Chief Of Planning Name Role Phone CARLO FAY CP Unavailable Allergies, Adverse Reactions, Alerts Substance Reaction Event Type Wellbutrin hallucinations Drug Allergy Problems Problem Type Condition Code Onset Dates Condition Status Assessment Other halfway (current) drug therapy Z79.899 Active Problem Routine adult health maintenance V70.0 Active Problem Right shoulder pain 719.41 Active Problem Vaginal pb B37.3 Active Assessment Major depressive disorder, recurrent episode, mild F33.0 Active Assessment Generalized anxiety disorder F41.1 Active Problem Generalized anxiety disorder F41.1 Active Problem Major depressive disorder, recurrent episode, mild F33.0 Active Medications Medication Code System Code Instructions Start Date End Date Status Dosage Xanax [facility] [address]-83 0.25 MG Orally Three times a day prn anxiety. MAX 30 per month 1 tablet Latuda [facility] [address]-61 40 mg Orally. Once a day 1 tablet with food Diclofenac Sodium [facility] 00976834207 50 MG TAKE ONE TABLET BY MOUTH THREE TIMES DAILY Lexapro [facility] [address]-29 10 mg Orally Once a day 1 tablet Procedures Procedure Coding System Code Date Office Visit, Est Pt., Level 3 CPT-4 48960 Jul 02, 2016 Vital Signs Date/Time: Jul 02, 2016 Cardiac Monitoring Heart Rate 72 bpm Weight 100.8 lbs Height 60 in BMI 19.68 Index Blood Pressure Diastolic 58 mmHg Blood Pressure Systolic 96 mmHg Results No Known Results Summary Purpose eClinicalWorks Submission
--- OUTSIDE RECORDS SUMMARY | 2017-03-02 18:20 | XMS REPORT | Continuity of Care Document ---
Author Author [facility] Address Unknown Phone Unavailable Allergies Active Description Code Type Severity Reaction Onset Reported/Identified Relationship to Patient Clinical Status Yes No Known Drug Allergies [id number] Drug Allergy Unknown N/ A 05/22/2009 Medications [...] STREPTOCOCCUS 08/18/2014 CHEYENNE VILLANUEVA MD Ot V06.1 [id number], COMBINED [ 08/18/2014 CHEYENNE VILLANUEVA MD Ot [...] Procedures Code Description [place] [address] INDIV PSYTX 45/50 MIN 06/22/2012 38197 INDIV PSYTX 45/50 MIN 07/07/2012 31685 INDIV PSYTX 45/50 MIN 08/04/2012 56982 PSYTX PT&/FAMILY 45 MINUTES 09/01/2012 75.69 REPAIR [...] Status Pt. Type Provider Facility Loc./Unit Complaint [id number] 09/01/2012 10:02:00 09/01/2012 23: 59:59 CLS Outpatient GURMEET LARKIN PSYD [id number] 08/04/2012 13:58:00 08/04/2012 23: 59:59 CLS Outpatient [id number] 06/22/2012 11:02:00 06/22/2012 23: 59:59 CLS Outpatient GURMEET LARKIN PSYD
== END 2017-03-02 09:18 | disposition home or self-care (01) ==
LOC: EDUNIT# 16:11 → ER 16:13 → 4TH 19:09 → UNDOADMOB 19:09 → 4TH 20:25 → UNDODISOB 03-02 10:15
PROVIDERS: ADMIT Family Medicine; ATTEND Family Medicine
DX: E87.6 Hypokalemia (principal); J06.9 Acute upper respiratory infection, unspecified; R74.8 Abnormal levels of other serum enzymes; F12.10 Cannabis abuse, uncomplicated; F11.10 Opioid abuse, uncomplicated; F33.9 Major depressive disorder, recurrent, unspecified; F17.210 Nicotine dependence, cigarettes, uncomplicated; Z79.899 Other long term (current) drug therapy
CPT/HCPCS: 36415; 71020; 80048; 80053; 80306; 81000; 83605; 84703; 85025; 86308; 87040; 93005; 96360; G0378

== ENCOUNTER → 2021-03-28 | Outpatient (CLI) | payer MEDICAID ==
[~2021-03-28] MED LIST changes: +ACET-93 PO; +ALPR.25T PO; -ALPR0.254 PO; +ATOM25CA5 PO; +ESCI-2 PO; -ESCI10TA55 PO; +HYDR-3781 PO; +LURA60TA2 PO; +PED18TAB2 PO
--- NOTE | 2021-03-31 09:17 | Diagnostic Imaging Report ---
INDICATION: Routine screening. COMPARISON: No prior mammograms are available for comparison. This is a baseline study. TECHNIQUE: 2D and 3D bilateral screening mammography was performed with CAD. FINDINGS: Scattered fibroglandular densities are identified bilaterally. No mass or malignant-appearing microcalcifications are seen. The axillae are unremarkable. IMPRESSION: No mammographic features suspicious for malignancy are identified. ACR BI-RADS Category 1: Negative. Result letter will be mailed to the patient. Note: At least 10% of breast cancer is not imaged by mammography. Dictated by: Dictated on workstation # [id number]
== END ==
LOC: RAD 11:15
PROVIDERS: ATTEND Nurse Practitioner Family
DX: Z12.31 Encounter for screening mammogram for malignant neoplasm of breast (principal)
CPT/HCPCS: 77063; 77067

== ENCOUNTER 2022-04-09 09:54 | Emergency (ER) | payer MEDICAID ==
[~2022-04-09] VITALS: Ht 152.4 cm; Wt 48.5 kg
[~2022-04-09 09:54] MED LIST changes: +LURA40TA2 PO; -LURA40TA3 PO
--- NOTE | 2022-04-09 10:14 | ED General ---
General Chief Complaint: Back Problems Stated Complaint: BACK PAIN Source of Information: Patient Exam Limitations: No Limitations History of Present Illness Date Seen by Provider: Apr 09, 2022 Time Seen by Provider: 10:05 Initial Comments 42-year-old female who is otherwise healthy presents to the emergency department today for left parascapular pain. Symptoms started 3 days ago when she was walking and moved her arm while. She has had persistent tenderness since that time. Describes as dull pain worse with arm movement, twisting motions and relieved somewhat by rest but it is there constantly. She saw her primary care doctor who started her on some muscle relaxers which have not really helped. She has been taking anti-inflammatory medication such as Motrin and Naprosyn without much relief. She denies any chest pain, shortness of breath fevers or chills. Allergies and Home Medications Allergies Coded Allergies: No Known Drug Allergies (Verified , 05/22/09) Patient Home Medication List Home Medication List Reviewed: Yes Acetaminophen (Acetaminophen) 500 Mg Tablet, 1,000 MG PO Q6H PRN for PAIN-MILD, (Reported) Entered as Reported by: SHYANNE MONCADA on 03/02/17 09 Atomoxetine HCl (Atomoxetine HCl) 25 Mg Capsule, 25 MG PO DAILY, (Reported) Entered as Reported by: SHYANNE MONCADA on 03/02/17 09 Escitalopram Oxalate (Escitalopram Oxalate) 10 Mg Tablet, 10 MG PO HS, (Reported) Entered as Reported by: SHYANNE MONCADA on 08/12/16 0937 Hydrocodone/Acetaminophen (Hydrocodone-Acetamin 5-325 mg) 5 Mg-325 Mg Tablet, 1 TAB PO Q6H PRN for PAIN-MODERATE (5-7) Prescribed by: JESUS WEATHERS MD on 04/09/22 1021 Hydroxyzine Pamoate (Hydroxyzine Pamoate) 25 Mg Capsule, 25 MG PO DAILY PRN for ANXIETY, (Reported) Entered as Reported by: SHYANNE MONCADA on 03/02/17 09 Lurasidone HCl (Latuda) 60 Mg Tablet, 60 MG PO HS, (Reported) Entered as Reported by: SHYANNE MONCADA on 03/02/17 09 Ped Multivit #43/Iron Fumarate (Flintstones Complete Chew Tab) 18 Mg Tab.chew, 36 MG PO DAILY, (Reported) Entered as Reported by: SHYANNE MONCADA on 03/02/17 09 Review of Systems Review of Systems Constitutional: no symptoms reported EENTM: no symptoms reported Respiratory: no symptoms reported Cardiovascular: no symptoms reported Gastrointestinal: no symptoms reported Genitourinary: no symptoms reported Musculoskeletal: back pain Past Yvdqxuh-Kuhbik-Gdycbh Hx Patient Social History Tobacco Use?: Yes Immunizations Up To Date Tetanus Booster (TDap): More than 5yrs Seasonal Allergies Seasonal Allergies: No Past Medical History Surgeries: Yes (right shoulder surgery) Adenoidectomy, Tonsillectomy Respiratory: No Pneumonia Cardiac: No Neurological: No Concussion Reproductive Disorders: No Female Reproductive Disorders: Polycystic Ovarian Dis Sexually Transmitted Disease: Yes (HPV) HIV/AIDS: No Bladder Infection Gastrointestinal: No Musculoskeletal: No Back Injury, Scoliosis Endocrine: No Loss of Vision: Denies Hearing Impairment: Denies Cancer: No Psychosocial: Yes Bipolar, Depression Integumentary: No Blood Disorders: No Adverse Reaction/Blood Tranf: No Family Medical History Reviewed Nursing Family Hx Alcoholism Grandparents (Paternal Grandfather) Cardiovascular disease Grandparents (Maternal Grandmother) Cataracts Grandparents (Maternal Grandparents) Completed stroke Grandparents (Maternal Grandfather) Congenital disease 19 FATHER (Factor 5 [place]) G8 SISTER (Factor 5 [place]) Dementia Grandparents (Maternal Grandmother) Diabetes mellitus 19 FATHER Grandparents (Maternal Grandmother) Glaucoma Grandparents (Maternal Grandparents) Hypercholesterolemia 19 FATHER Hypertension 19 FATHER G8 SISTER Grandparents (Maternal Grandfather) Kidney disease 19 MOTHER (Kidney removed due to disease) Myocardial infarction 19 FATHER G8 SISTER Grandparents (Maternal Grandfather Paternal Grandmother) Parkinson's disease Grandparents (Maternal Grandfather) Seizure disorder G8 SISTER No Family History of: AIDS Abdominal aortic aneurysm Sylvester's disease Alzheimer's disease Aphasia Arthritis Asthma Cancer of mouth Colon cancer Congenital heart disease Coronary thrombosis Cystic fibrosis Deafness or hearing loss Drug abuse Dysphasia Fibrocystic disease of breast Gastroenteritis Headache disorder Infertility Neoplasm Not obtainable due to adoption Osteoporosis Prostate cancer Psychosocial problem Respiratory disorder Severe allergy Thyroid disease Tuberculosis Visual disorder No Pertinent Family Hx Physical Exam Vital Signs Vital Signs - First Documented 04/09/22 10:00 Temp 36.6 Pulse 101 Resp 16 B/P (MAP) 125/87 (100) Pulse Ox 100 O2 Delivery Room Air Capillary Refill : Height, Weight, BMI Height: 5'0.00" Weight: 89lbs. 0.0oz. [id number]; 17.4 BMI Method:Stated General Appearance: No Apparent Distress, WD/WN HEENT: Normal ENT Inspection, Pharynx Normal Neck: Normal Inspection, Non Tender, Supple Respiratory: Chest Non Tender, Lungs Clear, Normal Breath Sounds Cardiovascular: Regular Rate, Rhythm, No Edema, No Murmur, Normal Peripheral Pulses Gastrointestinal: Normal Bowel Sounds, No Organomegaly, Non Tender, Soft Extremity: Normal Inspection, Other (Tenderness palpation left parascapular region. There are 2 trigger points in the area that are the source of maximum tenderness. Tenderness is worse throughout range of motion of the left upper extremity.) Neurologic/Psychiatric: Alert, Oriented x3, No Motor/Sensory Deficits Skin: Normal Color, Warm/Dry Progress/Results/Core Measures Suspected Sepsis SIRS Temperature: Pulse: Respiratory Rate: Blood Pressure / Mean: Results/Orders My Orders Orders - JESUS WEATHERS DO Ketorolac Injection (Toradol Injection) (04/09/22 10:15) Medications Given in ED Current Medications Medications Dose Ordered Sig/Marck Route Start Time Stop Time Status Last Admin Dose Admin Ketorolac Tromethamine 15 mg ONCE ONCE IM 04/09/22 10:15 04/09/22 10:16 DC 04/09/22 10:31 15 MG Vital Signs/I&O 04/09/22 04/09/22 10:00 10:38 Temp 36.6 36.6 Pulse 101 101 Resp 16 16 B/P (MAP) 125/87 (100) 125/87 Pulse Ox 100 100 O2 Delivery Room Air Room Air Capillary Refill : Departure Communication (Admissions) Patient appears to have musculoskeletal pain on exam with no cardiac risk fac tors and certainly exam is not indicative of cardiac, pulmonary etiology. She is feeling better after direct pressure techniques here at bedside. She is given IM Toradol and discharged home with some as needed hydrocodone. She is comfortable agreeable current plan of care and discharged in stable condition Impression Primary Impression: Musculoskeletal pain Disposition: HOME, SELF-CARE Condition: Stable Departure-Patient Inst. Decision time for Depature: 10:18 Referrals: МАРИНА CAIN MD (PCP/Family) Primary Care Physician Patient Instructions: Back Muscle Strain (DC) Add. Discharge Instructions: You were seen in the emergency department today for back pain in your upper left back. This is likely from muscle spasm at this time and there is no indication that this is coming from your heart lungs or bone. Please take the provided medications as needed. I would like you to start with anti-inflammatory medicines as you have been doing such as Naprosyn or Motrin. For any pain that is not controlled in this manner please take the provided medicine. Do not drive or make important decisions while taking it as it may make you drowsy. Return to the emergency department for any severe concerns. Perform home stretching exercises and pressure techniques as shown here in the emergency department to expedite your improvement. All discharge instructions reviewed with patient and/or family. Voiced understanding. Scripts Hydrocodone/Acetaminophen (Hydrocodone-Acetamin 5-325 mg) 5 Mg-325 Mg Tablet 1 TAB PO Q6H PRN for PAIN-MODERATE (5-7) for 2 Days, #8 TAB 0 Refills Prov: JESUS WEATHERS DO 04/09/22 JESUS WEATHERS DO Apr 09, 2022 10:14
[2022-04-09] MEDS ORDERED: KETOROLAC 15 MG/ML VIAL IM ONE (10:15)
[2022-04-09] MEDS ORDERED: ACHD5005 PO (10:20)
[2022-04-09 10:38] VITALS: BP 125/87
== END 2022-04-09 10:38 | disposition home or self-care (01) ==
LOC: EDUNIT# 09:54 → ER 09:56
DX: M25.512 Pain in left shoulder (principal)
CPT/HCPCS: 99284

== ENCOUNTER → 2022-04-14 | Outpatient (CLI) | payer MEDICAID ==
[~2022-04-14] MED LIST changes: +ACHD5005 PO
--- NOTE | 2022-04-14 19:05 | Diagnostic Imaging Report ---
Indication: Neck pain. Time of Exam: 2:35 PM AP, odontoid and lateral views of the cervical spine were obtained. Curvature and alignment is normal. There is multilevel degenerative disc disease with variable disc space narrowing and marginal spurring, greatest at C5-C6 and C6-C7 levels. Prevertebral tissues are normal. No fractures are seen. Odontoid view is limited but no gross abnormality is seen. IMPRESSION: Cervical spondylosis. No acute bony abnormality is detected. Dictated by: Dictated on workstation # [id number]
--- NOTE | 2022-04-14 19:05 | Diagnostic Imaging Report ---
Indication: Back pain. Time of Exam: 2:40 PM AP, lateral and swimmer's views of the thoracic spine were obtained. There is normal thoracic kyphotic curvature. Vertebral body heights are well-maintained. Pedicles and paraspinous line are intact. No fractures are seen. IMPRESSION: No acute bony abnormality is detected. Dictated by: Dictated on workstation # [id number]
== END ==
LOC: RAD 14:16
PROVIDERS: ATTEND Family Medicine
DX: M47.812 Spondylosis without myelopathy or radiculopathy, cervical region (principal); M54.6 Pain in thoracic spine
CPT/HCPCS: 72040; 72072

== ENCOUNTER → 2022-04-21 | Outpatient (CLI) | payer MEDICAID ==
--- NOTE | 2022-04-21 19:24 | Diagnostic Imaging Report ---
PROCEDURE: MR imaging cervical spine without contrast. TECHNIQUE: Multiplanar, multisequence MR imaging of the cervical spine was performed without contrast. INDICATION: Bilateral numbness x6 months to a year. Left lower neck pain x3 weeks. EXAMINATION: Cervical spine MRI without contrast 04/21/2022 FINDINGS: There is normal height and alignment of the vertebral bodies. No compression deformities appreciated. The cervical medullary junction appears unremarkable. Visualized cord signal appears preserved. C2-C3: There is a small right paracentral spur disc complex. There is no significant central or neural foraminal stenosis. C3-C4: Mild spur disc complex is noted broad-based in nature. There is minimal bilateral facet hypertrophy. There is mild left neural foraminal stenosis. Central canal and right neural foramen patent. C4-C5: Unremarkable. C5-C6: There is intervertebral disc space narrowing with a broad-based bulging disc. There is bilateral facet hypertrophy. Findings cause moderate bilateral neural foraminal narrowing with moderate to near severe central stenosis. No cord compression is appreciated. C6-C7: There is a broad-based spur disc complex. This causes moderate central stenosis. There is mild left neural foraminal narrowing C7-T1: Unremarkable The prevertebral soft tissues unremarkable. IMPRESSION: 1. Multilevel diffuse degenerative disease as above with bulging disc material at C5-C6 causing moderate to severe central stenosis without evidence for cord compression. Other findings as detailed above. Dictated by: Dictated on workstation # [id number]
== END ==
LOC: RAD 18:00
PROVIDERS: ATTEND Nurse Practitioner Family
DX: M47.812 Spondylosis without myelopathy or radiculopathy, cervical region (principal); M46.92 Unspecified inflammatory spondylopathy, cervical region; M50.20 Other cervical disc displacement, unspecified cervical region; M48.02 Spinal stenosis, cervical region
CPT/HCPCS: 72141

== ENCOUNTER 2022-05-19 08:46 | Outpatient (RCR) | payer MEDICAID | END 2022-05-22 | disposition home or self-care (01) | PROVIDERS: ATTEND Nurse Practitioner Family | DX: M54.2 Cervicalgia (principal); M54.6 Pain in thoracic spine ==

== ENCOUNTER 2023-02-26 13:44 | Emergency (ER) | payer MEDICAID ==
[~2023-02-26] VITALS: Ht 152 cm; Wt 63.0 kg
[2023-02-26] MEDS ORDERED: LIDOCAINE 4% (SALONPAS) PATCH TOP STA (14:02)
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
[2023-02-26] MEDS ORDERED: KETOROLAC 30 MG/ML VIAL IM ONE (14:15)
[2023-02-26 14:32] VITALS: BP 105/81
== END 2023-02-26 14:32 | disposition home or self-care (01) ==
LOC: EDUNIT# 13:44 → ER 13:45
DX: M54.50 Low back pain, unspecified (principal); F41.9 Anxiety disorder, unspecified

== ENCOUNTER 2023-03-02 08:55 | Emergency (ER) | payer MEDICAID ==
--- NOTE | 2023-03-02 09:25 | ED Back Pain ---
General Chief Complaint: Back Problems Stated Complaint: LOWER BACK INJ | Source of Information: Patient Exam Limitations: No Limitations History of Present Illness Date Seen by Provider: Mar 02, 2023 Time Seen by Provider: 09:21 Initial Comments Patient is a 43-year-old female who presents to the emergency department with a chief complaint of back pain. Patient has had altercations with the police within the last 3 or 4 days. She was "thrown" into a police car and heard a pop. She states ever since that time she has had back pain. She denies any incontinence of bowel or bladder. No numbness. The pain does not radiate. It stays in her back. She states movement makes it worse laying flat or on her left side makes it feel better. No other complaints of recent illness or injury. She has spent the last few days in [facility] and was released this morning. No allergies to medications. She is a smoker. She has not taken anything for the pain she states because she doesn't have any money. Timing/Duration: 3-4 Days Severity: Severe Pain/Injury Location: Back Method of Injury: Other Modifying Factors: Improves With Immobilization; Worse With Movement Associated Symptoms: No numbness in legs/feet, No tingling in legs/feet, No sensory/motor loss; lower back pain; No loss of bladder control, No loss of bowel control Allergies and Home Medications Allergies Coded Allergies: No Known Drug Allergies (Verified , 05/22/09) Patient Home Medication List Home Medication List Reviewed: Yes Acetaminophen (Acetaminophen) 500 Mg Tablet, 1,000 MG PO Q6H PRN for PAIN-MILD, (Reported) Entered as Reported by: SHYANNE MONCADA on 03/02/17 0913 Atomoxetine HCl (Atomoxetine HCl) 25 Mg Capsule, 25 MG PO DAILY, (Reported) Entered as Reported by: SHYANNE MONCADA on 03/02/17 0913 Escitalopram Oxalate (Escitalopram Oxalate) 10 Mg Tablet, 10 MG PO HS, (Reported) Entered as Reported by: SHYANNE MONCADA on 08/12/16 0937 Hydrocodone/Acetaminophen (Hydrocodone-Acetamin 5-325 mg) 5 Mg-325 Mg Tablet, 1 TAB PO Q6H PRN for PAIN-MODERATE (5-7) Prescribed by: JESUS WEATHERS MD on 04/09/22 1021 Hydroxyzine Pamoate (Hydroxyzine Pamoate) 25 Mg Capsule, 25 MG PO DAILY PRN for ANXIETY, (Reported) Entered as Reported by: SHYANNE MONCADA on 03/02/17912 Lurasidone HCl (Latuda) 60 Mg Tablet, 60 MG PO HS, (Reported) Entered as Reported by: SHYANNE MONCADA on 03/02/17905 Ped Multivit #43/Iron Fumarate (Flintstones Complete Chew Tab) 18 Mg Tab.chew, 36 MG PO DAILY, (Reported) Entered as Reported by: SHYANNE MONCADA on 03/02/17912 Review of Systems Constitutional: see HPI EENTM: no symptoms reported Respiratory: no symptoms reported Cardiovascular: no symptoms reported Gastrointestinal: no symptoms reported Genitourinary: no symptoms reported Musculoskeletal: back pain Skin: no symptoms reported Psychiatric/Neurological: Emotional Problems All Other Systems Reviewed Negative Unless Noted: Yes Past Qlvekkr-Lkedgx-Hfiqyx Hx Patient Social History Tobacco Use?: Yes Tobacco type used: Cigarettes Substance use?: Yes Substance type: Marijuana Alcohol Use?: Yes Alcohol Frequency: Rarely Pt feels they are or have been: No Immunizations Up To Date Tetanus Booster (TDap): More than 5yrs Seasonal Allergies Seasonal Allergies: No Past Medical History Surgery/Hospitalization HX: R LABRIUM, BIPOLAR Surgeries: Yes (right shoulder surgery) Adenoidectomy, Tonsillectomy Respiratory: No Pneumonia Cardiac: No Neurological: No Concussion Reproductive Disorders: No Female Reproductive Disorders: Polycystic Ovarian Dis Sexually Transmitted Disease: Yes (HPV) HIV/AIDS: No Bladder Infection Gastrointestinal: No Musculoskeletal: No Back Injury, Scoliosis Endocrine: No Loss of Vision: Denies Hearing Impairment: Denies Cancer: No Psychosocial: Yes Bipolar, Depression Integumentary: No Blood Disorders: No Adverse Reaction/Blood Tranf: No Family Medical History Alcoholism Grandparents (Paternal Grandfather) Cardiovascular disease Grandparents (Maternal Grandmother) Cataracts Grandparents (Maternal Grandparents) Completed stroke Grandparents (Maternal Grandfather) Congenital disease 19 FATHER (Factor 5 [place]) G8 SISTER (Factor 5 [place]) Dementia Grandparents (Maternal Grandmother) Diabetes mellitus 19 FATHER Grandparents (Maternal Grandmother) Glaucoma Grandparents (Maternal Grandparents) Hypercholesterolemia 19 FATHER Hypertension 19 FATHER G8 SISTER Grandparents (Maternal Grandfather) Kidney disease 19 MOTHER (Kidney removed due to disease) Myocardial infarction 19 FATHER G8 SISTER Grandparents (Maternal Grandfather Paternal Grandmother) Parkinson's disease Grandparents (Maternal Grandfather) Seizure disorder G8 SISTER No Family History of: AIDS Abdominal aortic aneurysm [place]'s disease Alzheimer's disease Aphasia Arthritis Asthma Cancer of mouth Colon cancer Congenital heart disease Coronary thrombosis Cystic fibrosis Deafness or hearing loss Drug abuse Dysphasia Fibrocystic disease of breast Gastroenteritis Headache disorder Infertility Neoplasm Not obtainable due to adoption Osteoporosis Prostate cancer Psychosocial problem Respiratory disorder Severe allergy Thyroid disease Tuberculosis Visual disorder No Pertinent Family Hx Physical Exam Vital Signs Vital Signs - First Documented 03/02/23 09:17 Temp 35.5 Pulse 111 Resp 16 B/P (MAP) 112/90 (97) Pulse Ox 100 O2 Delivery Room Air Capillary Refill : Height, Weight, BMI Height: 5'0.00" Weight: 89lbs. 0.0oz. [id number]; 27.00 BMI Method:Stated General Appearance: WD/WN, Mild Distress (tearful), Thin HEENT: PERRL/EOMI Cardiovascular: Regular Rate, Rhythm Respiratory: No Accessory Muscle Use, No Respiratory Distress Gastrointestinal: Non Tender, Soft Back: Normal Inspection, Other (diffuse whole spine tenderness (from C7 to sacrum). no swelling is appreciated. ; she seems to have tenderness where ever I touch her back.) Extremity: Normal Inspection, Normal Range of Motion, No Pedal Edema Neurologic/Psychiatric: Alert, Oriented x3, No Motor/Sensory Deficits, Depressed Affect; No Motor Weakness, No Sensory Deficit; Other (2+ DTR's patella and ankles bilaterally) Skin: Normal Color, Warm/Dry, Other (scattered bruises (small 2-3 cm each) over flanks (no bruising noted over midline)) Progress/Results/Core Measures Results/Orders My Orders Orders - AMOL ESCALANTE MD Cyclobenzaprine Tablet (Flexeril Tablet) (03/02/23 09:39) Ketorolac Injection (Toradol Injection) (03/02/23 09:45) Medications Given in ED Current Medications Medications Dose Ordered Sig/Marck Route Start Time Stop Time Status Last Admin Dose Admin Ketorolac Tromethamine 30 mg ONCE ONCE IM 03/02/23 09:45 03/02/23 09:46 DC 03/02/23 09:44 30 MG Vital Signs/I&O 03/02/23 03/02/23 09:17 09:53 Temp 35.5 35.5 Pulse 111 111 Resp 16 16 B/P (MAP) 112/90 (97) 112/90 Pulse Ox 100 100 O2 Delivery Room Air Room Air Departure Impression Primary Impression: Back pain Qualified Codes: M54.9 - Dorsalgia, unspecified Disposition: 01 HOME, SELF-CARE Condition: Stable Departure-Patient Inst. Referrals: МАРИНА CAIN MD (PCP/Family) Primary Care Physician Patient Instructions: Exercises for Upper Back Pain Add. Discharge Instructions: Drink lots of fluids over the next 24-48 hours. You can take over the counter ibuprofen 3 pills (600mg) every 6 hours with food as needed for pain. Generic ([employer] brand) Ibuprofen is very cheap. Alternate heat and ice to the sore parts of your back 20 minutes at a time 4-6 times a day. Try and stay active to prevent worsening muscle spasm. Follow up with your primary care doctor. Copy Copies To 1: МАРИНА CAIN MD, KATHRYN M MD Mar 02, 2023 09:25
[2023-03-02] MEDS ORDERED: CYCLOBENZAPRINE 10 MG (FLEXERIL) TAB PO STA (09:39)
[2023-03-02] MEDS ORDERED: KETOROLAC 30 MG/ML VIAL IM ONE (09:45)
[2023-03-02 09:53] VITALS: BP 112/90
== END 2023-03-02 09:58 | disposition home or self-care (01) ==
LOC: EDUNIT# 08:55 → ER 08:57
DX: S30.1XXA Contusion of abdominal wall, initial encounter (principal); M54.50 Low back pain, unspecified; M54.2 Cervicalgia; M54.6 Pain in thoracic spine; M53.3 Sacrococcygeal disorders, not elsewhere classified; F17.210 Nicotine dependence, cigarettes, uncomplicated; Z91.148 Patient's other noncompliance with medication regimen for other reason; Y04.0XXA Assault by unarmed brawl or fight, initial encounter; X50.1XXA Overexertion from prolonged static or awkward postures, initial encounter
CPT/HCPCS: 99284

== ENCOUNTER → 2023-05-07 | Outpatient (CLI) | payer MEDICAID ==
--- NOTE | 2023-05-07 15:36 | Diagnostic Imaging Report ---
PROCEDURE: Pelvic comp/transvaginal sonogram. TECHNIQUE: Complete transabdominal and transvaginal pelvic ultrasound was performed. In addition, limited pelvic Doppler was performed. INDICATION: Abnormal uterine bleeding. FINDINGS: Uterus is anteverted measuring 6.9 x 2.7 x 3.8 cm. Endometrium is 2 mm in thickness. No myometrial mass is identified. Right ovary measures 2.5 x 1.1 x 1.1 cm and left ovary measures 3.4 x 2.0 x 2.5 cm. Left ovary does contain a 2.2 cm cyst. There is blood flow to both ovaries. No adnexal mass or free fluid is detected. IMPRESSION: 2.2 cm left ovarian cyst. The study is otherwise unremarkable. Dictated by: Dictated on workstation # [id number]
== END ==
LOC: RAD 13:45
PROVIDERS: ATTEND Nurse Practitioner Women's Health
DX: N83.202 Unspecified ovarian cyst, left side (principal)
CPT/HCPCS: 76830; 76856